=== PATIENT | male | born 1965 | race Caucasian/White ===

== ENCOUNTER → 2018-05-13 | Outpatient (CLI) | payer BC | END | disposition home or self-care (01) | LOC: CFH 12:17 | PROVIDERS: ATTEND Internal Medicine Cardiovascular Disease | DX: I25.9 Chronic ischemic heart disease, unspecified (principal); I25.10 Atherosclerotic heart disease of native coronary artery without angina pectoris; R73.03 Prediabetes | CPT/HCPCS: 75571; 78452; 93017; 93306; A9502 ==